=== PATIENT | male | born 1965 | race Caucasian/White ===

== ENCOUNTER → 2018-02-01 | Outpatient (CLI) | payer BC ==
--- NOTE | 2018-02-02 04:03 | MRI ---
EXAM DATE: 02/01/2018 12:00 AM CDT. PROCEDURE: MR BRAIN WITHOUT THEN WITH IV CONTRAST. INDICATION: HEADACHE. COMPARISON: None. TECHNIQUE: Multiplanar multisequence images of the brain were acquired before and after the administration of intravenous contrast. FINDINGS: No acute infarct. Tiny foci of susceptibility scattered throughout the cortical and subcortical frontal lobe, periventricular white matter, and left basal ganglia. Focal encephalomalacia of the right occipital lobe. Scattered T2/hyperintensities within the subcortical, deep, and periventricular white matter compatible with chronic microvascular angiopathy. There are apparent small foci of enhancement within the left frontal lobe on image 20 and 18 of series 901 of the spin echo postcontrast images without corresponding abnormality on postcontrast gradient echo images. There are also no corresponding T2/FLAIR signal abnormalities in these regions. The midline structures including the pituitary, corpus callosum, and cerebellar tonsils are unremarkable. The ventricles and sulci are normal in size and configuration. Unremarkable orbits. Paranasal sinuses, mastoid air cells, and calvarium are unremarkable. IMPRESSION: Two small foci of apparent enhancement within the left frontal lobe may be artifactual given lack of corresponding abnormality on remainder of sequences. This may be reevaluated in 3-6 months. Tiny foci of susceptibility scattered throughout the brain with differential considerations including old microhemorrhage or amyloid angiopathy. Encephalomalacia of the right occipital lobe. Mild nonspecific white matter changes, commonly seen with small vessel ischemic disease in a patient this age. Electronically signed by: Michael Harris MD 02/02/2018 4:00 AM CDT
== END ==
LOC: MRI 13:51
PROVIDERS: ATTEND Nurse Practitioner
DX: H53.9 Unspecified visual disturbance (principal); R51 Headache

== ENCOUNTER → 2018-08-10 | Outpatient (CLI) | payer BC ==
--- NOTE | 2018-08-10 14:28 | MRI ---
EXAM DESCRIPTION: Brain w/wo Contrast: Magnetic Resonance Imaging. CLINICAL HISTORY: DOUBLE VISION COMPARISON: Scanning of the brain with and without contrast 02/01/2018. TECHNIQUE: Multiplanar, high-field MRI, multiple conventional sequences, without and with gadolinium IV contrast. Scans through the facial area and orbits without and with gadolinium IV contrast. No adverse reactions. Multiple axial diffusion sequences. FINDINGS: A triangular-shaped region of encephalomalacia is visible in the cortex and subcortical white matter of the right occipital lobe extending to the level of the posterior horn of the right lateral ventricle. This central area is dark on T1 and FLAIR sequences with no diffusion restriction. Bright FLAIR signal surrounding the lesion consistent with gliosis is present. The entire lesion is bright on T2 and ADC map images. No enhancement is noted. No hemorrhage. There is a contralateral lesion in the left occipital lobe. Small multiple foci of hyperintense FLAIR and T2-weighted signal in the periventricular white matter and cardoza-white matter junctions of the frontal and parietal lobes. . 2 of these lesions in the posterior right frontal lobe and anterior left occipital lobe above the ventricles are enhancing since the prior study. The previously described enhancing lesions in the left frontal lobe do not enhance on this study. Similar bilateral foci of hyperintense FLAIR signal in the bilateral basal ganglia including the right thalamus and the posterior limb of the left internal capsule. No hemorrhage, no cerebral edema. No diffusion restriction. Normal contrast enhancement. Normal signal in the brainstem and cerebellar hemispheres. No hemorrhage, no cerebral edema, no mass-effect. Normal contrast enhancement. Concordance of the diffusion and non-diffusion sequences with no evidence of acute or subacute infarction. Cortical sulci, ventricles, and other CSF spaces, and the subdural spaces are normally configured.. No effacement or displacement. No midline shift. No extra-axial hemorrhage. Normal contrast enhancement. Normal flow signal void in the major vessels of the [place], and the venous sinuses. IACs are symmetric bilaterally. Minimal fluid in the left mastoid air cells; fluid in the right mastoid air cells. No mass effect in the bilateral Cerebellopontine angles. Normal contrast enhancement. Pituitary gland occupies most of the sella. Normal contrast enhancement. Base of the cerebellar tonsils is at the level of the foramen magnum. Minimal mucoperiosteal thickening in the paranasal sinuses. No significant contrast enhancement. The bony calvarium is intact. Bilateral orbital contents appear symmetric bilaterally with normal signal and enhancement. Minimal edema in the bilateral optic nerve sheaths. No intraorbital mass. No suprasellar mass or mass or abnormal enhancement in the optic chiasm. Optic tracts and optic nerves optic chiasm with normal signal and enhancement. IMPRESSION: 1. Lesion in the right parasagittal occipital lobe cortical cardoza matter and subcortical white matter extends to the occipital horn of the right lateral ventricle which is not enlarged. No mass effect or enhancement. No diffusion restriction. Appearance is suggestive of previous infarction or possibly right trauma. This could be involving the vision centers in the right occipital lobe. No lesion in the contralateral left occipital lobe. 2. No abnormal enhancement mass effect or abnormal signal along the optic pathway, including the orbits. 3. Small lesions in the bilateral basal ganglia and the subcortical white matter and cardoza-white matter junctions of the frontal and parietal lobes bilaterally. At least 2 of the lesions in the posterior right frontal lobe and anterior right parietal lobe are enhancing on this study. Lesions in the left frontal lobe enhancing on the prior study are no longer enhancing. These focal lesions that are variably enhancing and nonenhancing could represent demyelinating disease. Also should consider cerebral microvascular disease.. No hemorrhage or diffusion restriction associated with these lesions. Electronically signed by: Rico Ye MD 08/10/2018 2:27 PM CDT
== END ==
LOC: MRI 08:12
PROVIDERS: ATTEND Psychiatry & Neurology Neurology
DX: H53.2 Diplopia (principal); G93.9 Disorder of brain, unspecified

== ENCOUNTER → 2018-11-02 | Outpatient (CLI) | payer BC ==
--- NOTE | 2018-11-02 09:53 | US ---
EXAM DESCRIPTION: Abdomen,Complete: Ultrasound. CLINICAL HISTORY: [facility] LFTs R94.5 COMPARISON: None Available. TECHNIQUE: Transabdominal scannin-dimensional and Doppler modes. FINDINGS: Gallbladder: Normal size. Multiple echogenic stones in the dependent gallbladder. Largest stone 5.7 mm diameter. Wall thickness 2.8 mm with no surrounding fluid. Nontender with transducer pressure. Common bile duct: 5.3 mm. Liver: 22.1 cm long axis right lobe liver. Increased echogenicity. Hepatopedal flow in the portal vein almost 1 cm diameter. Smooth capsule with no ascites. No intrahepatic duct dilatation. Pancreas: Normal size and echogenicity. Common bile duct not seen.. Abdominal aorta: Normal caliber from the proximal segment to the distal bifurcation. IVC: visualized; normal caliber. Spleen normal echogenicity; long axis measurement is 13.4 cm. Right kidney: 11.9 cm long axis with normal cortical echogenicity. Normal mid renal cortical thickness. No hydronephrosis or perinephric fluid. Left kidney: 12.6 cm long axis with normal cortical echogenicity. Normal mid renal cortical thickness. No hydronephrosis or perinephric fluid. IMPRESSION: 1. Cholelithiasis but no wall thickening, pericholecystic fluid, or tenderness. Common bile duct normal caliber. 2. Steatosis of the liver and moderate enlargement. Normal vascularity and ducts. No ascites. 3. Spleen upper normal limits in size. 4. Pancreas and kidneys are unremarkable. Normal caliber of the abdominal aorta and IVC. Electronically signed by: Rico Ye MD 11/02/2018 9:51 AM [employer]ATE
== END ==
LOC: US 08:12
PROVIDERS: ATTEND Internal Medicine Gastroenterology
DX: R94.5 Abnormal results of liver function studies (principal)